=== PATIENT | male | born 1955 | race Caucasian/White ===

== ENCOUNTER 2022-06-28 09:03 | Emergency (ER) | payer MEDICARE, OTHER ==
[2022-06-28] MEDS ORDERED: Sodium Chloride 0.9% 10 ML Syringe FLUSH PRN (09:15)
[2022-06-28] MEDS ORDERED: Ondansetron 4 MG Tab.DIS PO ONE (09:16)
[2022-06-28] MEDS ORDERED: Aspirin 81 MG Tab.Chew PO ONE (09:16)
[2022-06-28] MEDS ORDERED: Ticagrelor 90 MG Tab PO ONE (09:16)
[2022-06-28] MEDS ORDERED: Heparin Sodium 5,000 Units/ML Vial IVPUSH ONE (09:16)
[2022-06-28] MEDS ORDERED: Nitroglycerin 0.4 MG Tab.SL SL PRN (09:16)
[2022-06-28] MEDS ORDERED: NACL ONE (09:20)
[2022-06-28] MEDS ORDERED: HEPARIN SODIUM ONE (09:20)
[2022-06-28] MEDS ORDERED: Heparin Sodium 5,000 Units/ML Vial ONE (09:20)
[2022-06-28 09:40] LABS: CHLORIDE,CL 105 mmol/L (98-107); SODIUM,NA 141 mmol/L (136-145)
[2022-06-28 09:41] LABS: ANION GAP 11.6 mmol/L (5-15); ESTIMATED GFR 98 mL/min (>=60)
== END 2022-06-28 09:25 | disposition short-term general hospital (02) ==
LOC: VM.ED 09:03
DX: I21.19 ST elevation (STEMI) myocardial infarction involving other coronary artery of inferior wall (principal)
CPT/HCPCS: 80053; 84484; 85025; 85610; 93005; 96374; 99285; A9270